=== PATIENT | male | born 1980 | race Two or more races ===

== ENCOUNTER 2018-05-14 21:08 | Emergency (ER) | payer BC, MEDICAID, OTHER ==
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
== END 2018-05-14 23:20 | disposition home or self-care (01) ==
LOC: KA.ED 21:08 → SUPCPDRO 21:08 → KA.ED 23:20
DX: S16.1XXA Strain of muscle, fascia and tendon at neck level, initial encounter (principal); M54.5 Low back pain; V87.7XXA Person injured in collision between other specified motor vehicles (traffic), initial encounter
CPT/HCPCS: 72040; 72100; 99284

== ENCOUNTER 2020-01-05 07:50 | Emergency (ER) | payer BC ==
[2020-01-05 08:12] VITALS: BP 133/84; PULSE 56
[2020-01-05] MEDS: Sodium Chloride 0.9% 10 ML Syringe FLUSH PRN ×2 (08:30→08:59)
[2020-01-05] MEDS ORDERED: Ondansetron 4 MG/2 ML SDV IVPUSH ONE (08:33)
[2020-01-05] MEDS ORDERED: Sodium Chloride 0.9% 1,000 ML IV ONE (08:39)
--- NOTE | 2020-01-05 08:47 | EDM.PDOC ---
ED HPI GENERAL MEDICAL PROBLEM - General Chief Complaint: General Stated Complaint: Dizziness Time Seen by Provider: 01/05/20 08:38 Source of Information: Reports: Patient History Limitations: Reports: No Limitations - History of Present Illness INITIAL COMMENTS - FREE TEXT/NARRATIVE: Patient is a 39-year-old gentleman who presents to the emergency department this morning via private vehicle with a complaint of dizziness and headache. Patient states on Thursday morning while in standing position, he developed dizziness. Patient states symptoms have been waxing and waning, but have not completely resolved and became worse this morning. He has been nauseous and has had a circumferential pressure type headache. 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 He was told at that time that if symptoms do reappear that he should present to the ER. Patient denies fever, neck stiffness, blurry vision, sinus pressure, chest pain, shortness of breath, out of country travel, any trauma, heart palpitations, or any recent change in medication. Onset: Gradual Onset Date: 01/02/20 Duration: Day(s): Location: Reports: Head Quality: Reports: Other (Dizziness) Severity: Moderate Improves with: Reports: None Worsens with: Reports: Movement Context: Denies: Trauma Associated Symptoms: Reports: Diaphoresis, Headaches, Nausea/Vomiting. Denies: Chest Pain, Fever/Chills, Seizure, Shortness of Breath, Syncope - Related Data Allergies Allergy/AdvReac Type Severity Reaction Status Date / Time No Known Drug Allergies Allergy Other Verified 01/05/20 08:12 Home Meds: Home Meds Ibuprofen 400 mg PO Q6H PRN 01/05/20 [History] Meclizine [Antivert] 25 mg PO TID #30 tab 01/05/20 [Rx] Social & Family History - Tobacco Use Smoking Status *Q: Never Smoker Second Hand Smoke Exposure: Yes - Caffeine Use Caffeine Use: Reports: Coffee, Soda, Tea - Recreational Drug Use Recreational Drug Use: Yes Recreational Drug Type: Reports: Marijuana/Hashish Recreational Drug Use Frequency: Rarely ED ROS GENERAL - Review of Systems Review Of Systems: Comprehensive ROS is negative, except as noted in HPI. Constitutional: Reports: No Symptoms HEENT: Reports: No Symptoms Respiratory: Reports: No Symptoms Cardiovascular: Reports: No Symptoms Endocrine: Reports: No Symptoms GI/Abdominal: Reports: Nausea. Denies: Abdominal Pain, Vomiting : Reports: No Symptoms Musculoskeletal: Reports: No Symptoms Skin: Reports: No Symptoms Neurological: Reports: Dizziness, Headache. Denies: Numbness, Paresthesia, Pre- Existing Deficit, Trouble Speaking, Change in Speech Psychiatric: Reports: No Symptoms Hematologic/Lymphatic: Reports: No Symptoms Immunologic: Reports: No Symptoms ED EXAM, GENERAL - Physical Exam Exam: See Below Exam Limited By: No Limitations General Appearance: Alert, WD/WN, No Apparent Distress Eye Exam: Bilateral Eye: Normal Inspection, Other (No nystagmus during maneuver) Ears: Normal External Exam, Normal Canal, Normal TMs Ear Exam: Bilateral Ear: Auricle Normal, Canal Normal, TM normal Nose: Normal Inspection, Normal Mucosa, No Blood Throat/Mouth: Normal Inspection, Normal Oropharynx, No Airway Compromise Head: Atraumatic, Normocephalic Neck: Normal Inspection, Supple, Non-Tender, Full Range of Motion. No: Carotid Bruit, Lymphadenopathy (L), Lymphadenopathy (R) Respiratory/Chest: No Respiratory Distress, Lungs Clear, Normal Breath Sounds, No Accessory Muscle Use, Chest Non-Tender Cardiovascular: Normal Peripheral Pulses, Regular Rate, Rhythm, No Edema, No Gallop, No JVD, No Murmur, No Rub GI/Abdominal: Normal Bowel Sounds, Soft, Non-Tender, No Organomegaly, No Distention, No Abnormal Bruit, No Mass Back Exam: Normal Inspection. No: CVA Tenderness (L), CVA Tenderness (R) Extremities: Normal Inspection, No Pedal Edema Neurological: Alert, Oriented, CN II-XII Intact, Normal Cognition, No Motor/ Sensory Deficits Psychiatric: Normal Affect, Normal Mood Skin Exam: Warm, Dry, Intact, Normal Color, No Rash Lymphatic: No Adenopathy Course - Vital Signs Last Recorded V/S: Last Vital Signs Temp 96.1 F L 01/05/20 08:04 Pulse 56 L 01/05/20 08:04 Resp 18 01/05/20 08:04 BP 133/84 01/05/20 08:04 Pulse Ox 99 01/05/20 08:04 - Orders/Labs/Meds Orders: Active Orders 24 hr Category Date Time Status EKG Documentation Completion [RC] ASDIRECTED Care 01/05/20 08:40 Active Peripheral IV Care [RC] . DIRECTED Care 01/05/20 08:19 Active Sodium Chloride 0.9% [Saline Flush] Med 01/05/20 08:19 Active 10 ml FLUSH Q8HR PRN Peripheral IV Insertion Adult [OM.PC] Routine Oth 01/05/20 08:19 Ordered EKG 12 Lead [EK] Routine Ther 01/05/20 08:40 Ordered Medication Orders Sodium Chloride (Saline Flush) 10 ml FLUSH Q8HR PRN PRN Reason: keep vein open Last Admin: 01/05/20 08:59 Dose: 10 ml Admin: 01/05/20 08:30 Dose: 10 ml Labs: Laboratory Tests 01/05/20 01/05/20 Range/Units 08:25 08:25 WBC 9.74 (5.00-10.00) 10^3/uL RBC 4.95 (4.50-6.00) 10^6/uL Hgb 14.7 (13.0-17.0) g/dL Hct 43.4 (40.0-52.0) % MCV 87.7 (82.0-92.0) fL MCH 29.7 (27.0-31.0) pg MCHC 33.9 (32.0-36.0) g/dL RDW 13.2 (11.5-14.5) % Plt Count 283 (150-400) 10^3/uL MPV 9.6 (7.4-10.4) fL Immature Gran % (Auto) 0.3 (0.0-5.0) % Neut % (Auto) 69.0 (50.0-70.0) % Lymph % (Auto) 22.3 (20.0-40.0) % [place] % (Auto) 5.7 (2.0-8.0) % Eos % (Auto) 2.3 (1.0-3.0) % Baso % (Auto) 0.4 (0.0-1.0) % Immature Gran # (Auto) 0.03 (0.00-0.50) 10^3/uL Neut # (Auto) 6.72 (2.50-7.00) 10^3/uL Lymph # (Auto) 2.17 (1.00-4.00) 10^3/uL Sweet [place] # (Auto) 0.56 (0.10-0.80) 10^3/uL Eos # (Auto) 0.22 (0.10-0.30) 10^3/uL Baso # (Auto) 0.04 (0.00-0.10) 10^3/uL Sodium 140 (136-145) mmol/L Potassium 3.9 (3.3-5.3) mmol/L Chloride 105 (98-115) mmol/L Carbon Dioxide 23.5 (21.0-32.0) mmol/L Anion Gap 15.4 H (5-15) mmol/L BUN 13 (6-25) mg/dL Creatinine 0.81 (0.51-1.17) mg/dL Est Cr Clr Drug Dosing 120.02 mL/min Estimated GFR (MDRD) > 60 mL/min Glucose 107 H (75 - 99) mg/dL Calcium 8.9 (8.7-10.3) mg/dL Total Bilirubin 0.6 (0.2-1.0) mg/dL AST 14 L (15-37) U/L ALT 60 (12-78) U/L Alkaline Phosphatase 46 (46-116) IU/L Total Protein 7.0 (6.4-8.2) g/dL Albumin 3.88 (3.00-4.80) g/dL Meds: Medications Generic Name Dose Route Start Last Admin Trade Name Freq PRN Reason Stop Dose Admin Sodium Chloride 10 ml 01/05/20 08:19 01/05/20 08:59 Saline Flush FLUSH 10 ml Q8HR PRN Administration keep vein open Discontinued Medications Generic Name Dose Route Start Last Admin Trade Name Freq PRN Reason Stop Dose Admin Diazepam 5 mg 01/05/20 08:38 01/05/20 08:55 Valium IVPUSH 01/05/20 08:39 5 mg ONETIME ONE Administration Sodium Chloride 1,000 mls @ 999 mls/hr 01/05/20 08:39 01/05/20 09:07 Normal Saline IV 01/05/20 09:39 999 mls/hr .BOLUS ONE Administration Ondansetron HCl 4 mg 01/05/20 08:33 01/05/20 08:50 Zofran IVPUSH 01/05/20 08:34 4 mg ONETIME ONE Administration - Radiology Interpretation Free Text/Narrative:: CT head without contrast shows mild sinusitis without intracranial process - Re-Assessments/Exams Free Text/Narrative Re-Assessment/Exam: 01/05/20 09:42 Patient afebrile, vital signs stable, nontoxic appearing, symptoms mostly resolved following Valium and fluids. Patient will follow up PCP Departure - Departure Time of Disposition: 09:42 Disposition: Home, Self-Care 01 Condition: Good Clinical Impression: Vertigo Sinusitis Qualifiers: Sinusitis location: maxillary Chronicity: subacute Qualified Code(s): J01.00 - Acute maxillary sinusitis, unspecified - Discharge Information Instructions: Sinusitis, Adult, [id number], Dizziness, [id number], How to Perform a Sinus Rinse, [id number], Benign Positional Vertigo Referrals: Maycol Hart [employer] [Primary Care Provider] - Forms: ED Department Discharge Additional Instructions: Follow-up at [facility] in 2 days. Return to emergency department if symptoms continue or worsen. Sepsis Event Note - Evaluation Sepsis Screening Result: No Definite Risk - Focused Exam Vital Signs: Vital Signs Temp Pulse Resp BP Pulse Ox 01/05/20 08:04 96.1 F L 56 L 18 133/84 99 Date Exam was Performed: 01/05/20 Time Exam was Performed: 09:41 - My Orders Last 24 Hours: My Active Orders 01/05/20 08:19 Peripheral IV Care [RC] . DIRECTED Sodium Chloride 0.9% [Saline Flush] 10 ml FLUSH Q8HR PRN Peripheral IV Insertion Adult [OM.PC] Routine 01/05/20 08:40 EKG Documentation Completion [RC] ASDIRECTED EKG 12 Lead [EK] Routine - Assessment/Plan Last 24 Hours: My Active Orders 01/05/20 08:19 Peripheral IV Care [RC] . DIRECTED Sodium Chloride 0.9% [Saline Flush] 10 ml FLUSH Q8HR PRN Peripheral IV Insertion Adult [OM.PC] Routine 01/05/20 08:40 EKG Documentation Completion [RC] ASDIRECTED EKG 12 Lead [EK] Routine Assessment:: Dizziness Plan: Follow-up with PCP
[2020-01-05 08:58] LABS: ANION GAP 15.4 mmol/L (5-15); CHLORIDE,CL 105 mmol/L (98-115); SODIUM,NA 140 mmol/L (136-145)
--- NOTE | 2020-01-05 09:25 | CT ---
[id number] CT/CT Head WO IV EXAM: CT Head WO IV CLINICAL DATA: VERTIGO, NASOPHARYNGEAL CYST, SEEN ON MRI. COMPARISON STUDY: None FINDINGS: No intracranial hemorrhage, extra-axial fluid collection, mass, or acute ischemia. Generalized parenchymal atrophy with scattered areas of nonspecific white matter disease, commonly seen as sequela of chronic microvascular ischemia. Soft tissues are unremarkable. Mucosal thickening of the maxillary sinuses and ethmoid air cells. The remaining paranasal sinuses and mastoid air cells are well aerated and clear. IMPRESSION: 1. No acute intracranial findings. 2. Mild paranasal sinus disease. Vin Mera DO 01/05/20 0922 Thank you for allowing us to participate in the care of your patient.
== END 2020-01-05 10:10 | disposition home or self-care (01) ==
LOC: KA.ED 07:50
DX: J01.00 Acute maxillary sinusitis, unspecified (principal); R42 Dizziness and giddiness
CPT/HCPCS: 36415; 70450; 80053; 85025; 93005; 96361; 96374; 96375; 99284-25; J2405; J3360; J7030